=== PATIENT | male | born 1940 | race Caucasian/White ===

== ENCOUNTER → 2016-09-03 | Outpatient (REF) | payer MEDICARE, OTHER | LOC: M LABDRAWP 15:31 | PROVIDERS: ATTEND Physician Assistant Medical | DX: Z51.81 Encounter for therapeutic drug level monitoring (principal); Z79.899 Other long term (current) drug therapy; G40.919 Epilepsy, unspecified, intractable, without status epilepticus ==

== ENCOUNTER 2016-11-10 12:33 | Emergency (ER) | payer MEDICARE, OTHER ==
[~2016-11-10] VITALS: Ht 210.8 cm; Wt 77.1 kg
[2016-11-10] MEDS ORDERED: PHEN1TAB26 (12:54)
[2016-11-10] MEDS ORDERED: CARB1TAB6 (12:54)
[2016-11-10] MEDS ORDERED: SIMV40TA2 (12:54)
[2016-11-10] MEDS ORDERED: PHEN32.4 (12:54)
[2016-11-10 13:24] LABS: BASO % 0.2 % (0.0-1.0); EOS # 0.1 K/mm3 (0.0-0.50); EOS % 1.3 % (0.0-3.0); LARGE UNSTAINED CELL # 0.1 K/mm3 (0.0-0.4); LYMPH # 1.4 K/mm3 (1.5-4.5); LYMPH % 22.8 % (24.0-44.0); MEAN CORPUSCULAR HEMOGLOBIN 31.8 pg (27.0-33.0); MEAN CORPUSCULAR HGB CONC 32.9 g/dl (32.0-36.5); MEAN CORPUSCULAR VOLUME 96.6 fl (80.0-96.0); MONO # 0.4 K/mm3 (0.0-0.8); MONO % 6.8 % (0.0-5.0); PLATELET COUNT, AUTOMATED 152 k/mm3 (150-450); RED CELL DISTRIBUTION WIDTH 12.8 % (11.5-14.5)
--- NOTE | 2016-11-10 13:44 | REP ---
Chest x-ray: Two views. History: Weakness . Comparison study: February 02, 2012 . Findings: The lungs are well inflated and free of infiltrate. The pleural angles are sharp. The heart size is normal. Pulmonary vasculature is not increased. No significant bony abnormality is seen. EKG monitoring electrodes are seen. Impression: Negative chest x-ray. Signed by Yash Marion MD 11/10/2016 01:35 P
[2016-11-10 13:50] LABS: ALBUMIN 3.9 GM/DL (3.2-5.2); ALBUMIN/GLOBULIN RATIO 1.26 (1.00-1.93); ALKALINE PHOSPHATASE 75 U/L (45-117); ALT/SGPT 9 U/L (12-78); ANION GAP 5 MEQ/L (8-16); AST/SGOT 10 U/L (15-37); BILIRUBIN,DIRECT < 0.1 MG/DL (0.0-0.2); BILIRUBIN,TOTAL 0.2 MG/DL (0.2-1.0); BLOOD UREA NITROGEN 18 MG/DL (7-18); CARBON DIOXIDE LEVEL 31 MEQ/L (21-32); CHLORIDE LEVEL 107 MEQ/L (98-107); CREATININE FOR GFR 0.76 MG/DL (0.70-1.30); GLOMERULAR FILTRATION RATE > 60.0 (>42); GLUCOSE, FASTING 87 MG/DL (83-110); POTASSIUM SERUM 4.2 MEQ/L (3.5-5.1); SODIUM LEVEL 143 MEQ/L (136-145)
[2016-11-10] MEDS ORDERED: ONDANSETRON 4MG/2ML VIAL (J2405) IV ONE (14:45)
[2016-11-10] MEDS ORDERED: MECLIZINE 25 MG TABLET PO ONE (14:45)
--- NOTE | 2016-11-10 15:05 | REP ---
CT HEAD WITHOUT CONTRAST: HISTORY: Vertigo. COMPARISON: 03/09/2014 The patient is status post left parieto-occipital cranioplasty. 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 Decreased attenuation is present in the left temporoparietal and occipital lobes. There is dilatation of the overlying cortical sulci and posterior body and atrium of the left lateral ventricle. This represents encephalomalacia. There is no intraparenchymal hemorrhage, acute infarct, mass or midline shift. There is no hydrocephalus or extracerebral collection. The visualized sinuses are clear. IMPRESSION: Left temporoparietal occipital lobe encephalomalacia. Signed by Simón Esqueda MD 11/10/2016 03:07 P
[2016-11-10 15:31] VITALS: BP 124/72
[2016-11-10] MEDS ORDERED: ASPI81TA85 PO (17:47)
[2016-11-10] MEDS ORDERED: MECL-68 PO (17:47)
--- NOTE | 2016-11-11 08:09 | ECGEPIP ---
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
[2016-11-20 10:14] LABS: CARBIDOPA 0.073 mcg/mL (.)
== END 2016-11-10 18:12 | disposition home or self-care (01) ==
LOC: M ED 13:58
DX: H81.399 Other peripheral vertigo, unspecified ear (principal); R56.9 Unspecified convulsions; G20 Parkinson's disease; Z86.79 Personal history of other diseases of the circulatory system; R93.0 Abnormal findings on diagnostic imaging of skull and head, not elsewhere classified; Z79.82 Long term (current) use of aspirin; Z79.899 Other long term (current) drug therapy
CPT/HCPCS: 70450; 71020; 80048; 80076; 80184; 82550; 82553; 84443; 84484; 85025; 93005; 96374; 99284; G0480; J2405

== ENCOUNTER → 2017-03-30 | Outpatient (REF) | payer MEDICARE, OTHER ==
[~2017-03-30] MED LIST: ASPI81TA85 PO; CARB1TAB6; MECL-68 PO; PHEN1TAB26; PHEN32.44; SIMV40TA2
== END ==
LOC: M LAB REF 11:43
PROVIDERS: ATTEND Physician Assistant Medical
DX: R56.9 Unspecified convulsions (principal); Z51.81 Encounter for therapeutic drug level monitoring; Z79.899 Other long term (current) drug therapy

== ENCOUNTER → 2017-03-30 | Outpatient (REF) | payer MEDICARE, OTHER ==
[2017-03-30 11:46] LABS: MEAN CORPUSCULAR HEMOGLOBIN 31.2 pg (27.0-33.0); MEAN CORPUSCULAR HGB CONC 32.8 g/dl (32.0-36.5); MEAN CORPUSCULAR VOLUME 95.2 fl (80.0-96.0); PLATELET COUNT, AUTOMATED 158 10^3/uL (150-450); RED CELL DISTRIBUTION WIDTH 13.2 % (11.5-14.5)
[2017-03-30 12:17] LABS: ALBUMIN 3.9 GM/DL (3.2-5.2); ALBUMIN/GLOBULIN RATIO 1.39 (1.00-1.93); ALKALINE PHOSPHATASE 78 U/L (45-117); ALT/SGPT 9 U/L (12-78); ANION GAP 6 MEQ/L (8-16); AST/SGOT 11 U/L (15-37); BILIRUBIN,TOTAL 0.4 MG/DL (0.2-1.0); BLOOD UREA NITROGEN 14 MG/DL (7-18); CALCIUM LEVEL 8.8 MG/DL (8.8-10.2); CARBON DIOXIDE LEVEL 30 MEQ/L (21-32); CHLORIDE LEVEL 106 MEQ/L (98-107); CHOLESTEROL LEVEL 177 MG/DL (<200); CREATININE FOR GFR 0.73 MG/DL (0.70-1.30); GLOMERULAR FILTRATION RATE > 60.0 (>42); GLUCOSE, FASTING 91 MG/DL (83-110); SODIUM LEVEL 142 MEQ/L (136-145); TOTAL PROTEIN 6.7 GM/DL (6.4-8.2); TRIGLYCERIDES LEVEL 81 MG/DL (<150)
[2017-03-30 12:26] LABS: VITAMIN B12 LEVEL 1165 PG/ML (247-911)
== END ==
LOC: M SFHCPLAZ 10:13
PROVIDERS: ATTEND Internal Medicine
DX: E78.00 Pure hypercholesterolemia, unspecified (principal); E53.8 Deficiency of other specified B group vitamins; R56.9 Unspecified convulsions; Z51.81 Encounter for therapeutic drug level monitoring; Z79.899 Other long term (current) drug therapy

== ENCOUNTER → 2017-04-10 | Outpatient (REF) | payer MEDICARE, OTHER | LOC: M SFHCPLAZ 16:30 | PROVIDERS: ATTEND Nurse Practitioner Family | DX: R35.0 Frequency of micturition (principal) | CPT/HCPCS: 81002; 87086; G0463 ==

== ENCOUNTER 2017-07-27 03:09 | Emergency (ER) | payer MEDICARE, OTHER | END 2017-07-27 05:30 | disposition left against medical advice (07) | LOC: M ED 03:09 | DX: Z53.29 Procedure and treatment not carried out because of patient's decision for other reasons (principal) ==

== ENCOUNTER → 2017-07-27 | Outpatient (REF) | payer MEDICARE, OTHER ==
[2017-07-27 12:24] LABS: APPEARANCE, URINE HAZY (CLEAR); BACTERIA, URINE AUTO NEGATIVE (NEGATIVE); BILIRUBIN, URINE AUTO NEGATIVE (NEGATIVE); BLOOD, URINE BLOOD 1+ (NEGATIVE); COLOR, URINE YELLOW (YELLOW); GLUCOSE, URINE (UA) AUTO NEGATIVE (NEGATIVE); KETONE, URINE AUTO NEGATIVE (NEGATIVE); LEUKOCYTE ESTERASE, URINE AUTO 2+ (NEGATIVE); MUCUS, URINE SMALL (NEGATIVE); NITRITE, URINE AUTO NEGATIVE (NEGATIVE); PROTEIN, URINE AUTO NEGATIVE (NEGATIVE); RBC, URINE AUTO 4 /HPF (0-3); SPECIFIC GRAVITY URINE AUTO 1.011 (1.002-1.035); SQUAMOUS EPITHELIAL CELL UR AU 0 /HPF (0-6); UROBILINOGEN, URINE AUTO 0.2 mg/dL (0.0-2.0); WBC, URINE AUTO 11 /HPF (0-3)
== END ==
LOC: M SFHCPLAZ 09:47
DX: R30.0 Dysuria (principal)
CPT/HCPCS: 81001

== ENCOUNTER → 2017-10-19 | Outpatient (REF) | payer MEDICARE, OTHER ==
[2017-10-19 13:47] LABS: PHENOBARBITAL LEVEL 19.2 UG/ML (15.0-40.0)
== END ==
LOC: M LAB REF 13:09
DX: R56.9 Unspecified convulsions (principal)

== ENCOUNTER → 2017-10-19 | Outpatient (REF) | payer MEDICARE, OTHER ==
[2017-10-19 14:43] LABS: ALBUMIN/GLOBULIN RATIO 1.43 (1.00-1.93); ALKALINE PHOSPHATASE 71 U/L (45-117); ALT/SGPT 11 U/L (12-78); ANION GAP 7 MEQ/L (8-16); AST/SGOT 13 U/L (7-37); BILIRUBIN,TOTAL 0.3 MG/DL (0.2-1.0); BLOOD UREA NITROGEN 18 MG/DL (7-18); CALCIUM LEVEL 8.9 MG/DL (8.8-10.2); CARBON DIOXIDE LEVEL 29 MEQ/L (21-32); CHLORIDE LEVEL 108 MEQ/L (98-107); CREATININE FOR GFR 0.93 MG/DL (0.70-1.30); GLOMERULAR FILTRATION RATE > 60.0 (>42); GLUCOSE, FASTING 72 MG/DL (70-100); POTASSIUM SERUM 4.1 MEQ/L (3.5-5.1); SODIUM LEVEL 144 MEQ/L (136-145); THYROID STIMULATING HORMONE 0.536 uIU/ML (0.358-3.740); TOTAL PROTEIN 6.8 GM/DL (6.4-8.2)
== END ==
LOC: M SFHCPLAZ 10:40
DX: R53.83 Other fatigue (principal); R56.9 Unspecified convulsions
CPT/HCPCS: 84443

== ENCOUNTER → 2018-04-26 | Outpatient (REF) | payer MEDICARE, OTHER ==
[2018-04-26 12:25] LABS: HEMATOCRIT 39.2 % (42.0-52.0); HEMOGLOBIN 12.7 g/dl (13.5-17.5); MEAN CORPUSCULAR HEMOGLOBIN 31.4 pg (27.0-33.0); MEAN CORPUSCULAR HGB CONC 32.4 g/dl (32.0-36.5); PLATELET COUNT, AUTOMATED 178 10^3/uL (150-450); RED BLOOD COUNT 4.04 10^6/uL (4.30-6.10); RED CELL DISTRIBUTION WIDTH 13.1 % (11.5-14.5); WHITE BLOOD COUNT 5.7 10^3/uL (4.0-10.0)
[2018-04-26 12:35] LABS: ALKALINE PHOSPHATASE 75 U/L (45-117); ALT/SGPT 11 U/L (12-78); ANION GAP 5 MEQ/L (8-16); AST/SGOT 12 U/L (7-37); BILIRUBIN,TOTAL 0.2 MG/DL (0.2-1.0); BLOOD UREA NITROGEN 22 MG/DL (7-18); CALCIUM LEVEL 9.1 MG/DL (8.8-10.2); CARBON DIOXIDE LEVEL 30 MEQ/L (21-32); CHLORIDE LEVEL 107 MEQ/L (98-107); CHOLESTEROL LEVEL 221 MG/DL (<200); CHOLESTEROL RISK RATIO 3.564 (<5); CREATININE FOR GFR 0.83 MG/DL (0.70-1.30); GLOMERULAR FILTRATION RATE > 60.0 (>42); GLUCOSE, FASTING 91 MG/DL (70-100); HDL CHOLESTEROL 62 MG/DL (>40); LDL CHOLESTEROL 148 MG/DL (<100); NON-HDL-C 159 MG/DL; POTASSIUM SERUM 4.4 MEQ/L (3.5-5.1); SODIUM LEVEL 142 MEQ/L (136-145); TOTAL PROTEIN 6.5 GM/DL (6.4-8.2); TRIGLYCERIDES LEVEL 55 MG/DL (<150)
== END ==
LOC: M SFHCPLAZ 08:10
DX: R53.83 Other fatigue (principal); E78.00 Pure hypercholesterolemia, unspecified
CPT/HCPCS: 80053

== ENCOUNTER → 2018-05-14 | Outpatient (REF) | payer MEDICARE, OTHER | LOC: M LABNEURO 11:32 | DX: R56.9 Unspecified convulsions (principal) | CPT/HCPCS: 80184 ==

== ENCOUNTER → 2018-07-23 | Outpatient (REF) | payer MEDICARE, OTHER ==
[2018-07-23 12:22] LABS: HEMATOCRIT 38.9 % (42.0-52.0); HEMOGLOBIN 12.7 g/dl (13.5-17.5); MEAN CORPUSCULAR HEMOGLOBIN 31.2 pg (27.0-33.0); MEAN CORPUSCULAR HGB CONC 32.6 g/dl (32.0-36.5); MEAN CORPUSCULAR VOLUME 95.6 fl (80.0-96.0); PLATELET COUNT, AUTOMATED 176 10^3/uL (150-450); RED BLOOD COUNT 4.07 10^6/uL (4.30-6.10); WHITE BLOOD COUNT 5.4 10^3/uL (4.0-10.0)
[2018-07-23 12:33] LABS: ALBUMIN 3.9 GM/DL (3.2-5.2); ALT/SGPT 9 U/L (12-78); BILIRUBIN,TOTAL 0.3 MG/DL (0.2-1.0); BLOOD UREA NITROGEN 19 MG/DL (7-18); CALCIUM LEVEL 8.4 MG/DL (8.8-10.2); CARBON DIOXIDE LEVEL 29 MEQ/L (21-32); CHLORIDE LEVEL 108 MEQ/L (98-107); CREATININE FOR GFR 0.73 MG/DL (0.70-1.30); GLOMERULAR FILTRATION RATE > 60.0 (>42); GLUCOSE, FASTING 97 MG/DL (70-100); POTASSIUM SERUM 4.2 MEQ/L (3.5-5.1); SODIUM LEVEL 145 MEQ/L (136-145); TOTAL PROTEIN 6.4 GM/DL (6.4-8.2)
== END ==
LOC: M SFHCPLAZ 08:58
PROVIDERS: ATTEND Internal Medicine
DX: G20 Parkinson's disease (principal); Z86.010 Personal history of colon polyps; E53.8 Deficiency of other specified B group vitamins

== ENCOUNTER → 2018-12-03 | Outpatient (REF) | payer MEDICARE, OTHER ==
[2018-12-03 12:16] LABS: HEMATOCRIT 40.1 % (42.0-52.0); HEMOGLOBIN 12.9 g/dl (13.5-17.5); MEAN CORPUSCULAR HEMOGLOBIN 32.5 pg (27.0-33.0); MEAN CORPUSCULAR HGB CONC 32.2 g/dl (32.0-36.5); PLATELET COUNT, AUTOMATED 203 10^3/uL (150-450); RED BLOOD COUNT 3.97 10^6/uL (4.30-6.10); WHITE BLOOD COUNT 5.7 10^3/uL (4.0-10.0)
[2018-12-03 12:18] LABS: ALBUMIN 3.7 GM/DL (3.2-5.2); ALT/SGPT 9 U/L (12-78); BILIRUBIN,TOTAL 0.2 MG/DL (0.2-1.0); BLOOD UREA NITROGEN 23 MG/DL (7-18); CALCIUM LEVEL 8.5 MG/DL (8.8-10.2); CARBON DIOXIDE LEVEL 29 MEQ/L (21-32); CHLORIDE LEVEL 109 MEQ/L (98-107); CHOLESTEROL LEVEL 191 MG/DL (<200); CHOLESTEROL RISK RATIO 3.031 (<5); CREATININE FOR GFR 0.74 MG/DL (0.70-1.30); GLOMERULAR FILTRATION RATE > 60.0 (>42); GLUCOSE, FASTING 90 MG/DL (70-100); HDL CHOLESTEROL 63 MG/DL (>40); LDL CHOLESTEROL 114 MG/DL (<100); NON-HDL-C 128 MG/DL; POTASSIUM SERUM 4.4 MEQ/L (3.5-5.1); SODIUM LEVEL 144 MEQ/L (136-145); TOTAL PROTEIN 6.7 GM/DL (6.4-8.2); TRIGLYCERIDES LEVEL 72 MG/DL (<150)
[2018-12-03 12:24] LABS: VITAMIN B12 LEVEL 378 PG/ML (247-911)
== END ==
LOC: M SFHCPLAZ 09:21
PROVIDERS: ATTEND Internal Medicine
DX: R53.83 Other fatigue (principal); G20 Parkinson's disease; E78.00 Pure hypercholesterolemia, unspecified; E53.8 Deficiency of other specified B group vitamins

== ENCOUNTER → 2019-01-07 | Outpatient (CLI) | payer MEDICARE, OTHER | LOC: M LRY 12:36 | PROVIDERS: ATTEND Physician Assistant Medical | DX: G40.89 Other seizures (principal) ==